=== PATIENT | female | born 1965 | race African-American/Black ===

== ENCOUNTER 2017-02-07 08:53 | Emergency (ER) | payer MEDICAID ==
[~2017-02-07] VITALS: Ht 170.2 cm; Wt 79.0 kg
[2017-02-07 09:05] VITALS: BP 135/94
[2017-02-07] MEDS ORDERED: PREDNISONE 20MG TABLET PO ONE (10:15)
== END 2017-02-07 10:47 | disposition home or self-care (01) ==
LOC: ER 10:00
DX: R21 Rash and other nonspecific skin eruption (principal); F17.210 Nicotine dependence, cigarettes, uncomplicated
CPT/HCPCS: 99282; J7512; Z7610